=== PATIENT | female | born 1960 | race African-American/Black ===

== ENCOUNTER 2019-06-29 14:30 | Emergency (ER) | payer SELFPAY ==
[~2019-06-29] VITALS: Ht 170.2 cm; Wt 63.0 kg
[2019-06-29 14:38] VITALS: BP 163/93
[2019-06-29] MEDS ORDERED: ASPI-1497 PO (14:41)
== END 2019-06-29 18:46 | disposition left against medical advice (07) ==
LOC: ER 14:40
DX: Z53.21 Procedure and treatment not carried out due to patient leaving prior to being seen by health care provider (principal)
CPT/HCPCS: 93005

== ENCOUNTER 2020-10-29 15:54 | Inpatient (IN) | payer MEDICAID ==
[~2020-10-29] VITALS: Ht 177.8 cm; Wt 69.5 kg
[~2020-10-29 15:54] MED LIST: ASPI-1497 PO
[2020-10-29] MEDS ORDERED: ASPIRIN 325MG EC TABLET PO ONE (16:15)
[2020-10-29] MEDS ORDERED: HEPARIN 5000 UNITS/ML VIAL IV ONE (16:15)
[2020-10-29] MEDS: NITROGLYCERIN 0.4MG TABLET SL SL PRN ×2 (16:26→16:37)
[2020-10-29 16:29] LABS: BASOPHILS % 0.8 % (0.0-2.0); EOSINOPHILS % 1.4 % (0.0-5.0); HEMATOCRIT. 44.1 % (36.0-48.0); HEMOGLOBIN. 15.1 g/dL (12.0-16.0); LYMPHOCYTES % 28.3 % (20.0-50.0); MEAN CORPUSCULAR HEMOGLOBIN 30.3 pg (28.0-32.0); MEAN CORPUSCULAR VOLUME 88.3 fL (81.0-99.0); MEAN PLATELET VOLUME 9.2 fl (7.4-10.4); MONOCYTES % 8.5 % (2.0-8.0); PLATELET 245 x1000/uL (130-400); RED BLOOD CELL COUNT 4.99 mill/uL (4.2-5.4); RED CELL DISTRIBUTION WIDTH 14.1 % (11.6-14.6)
[2020-10-29] MEDS ORDERED: ONDANSETRON HCL 4MG/2ML INJ IV STA ×2 (16:42→17:43)
[2020-10-29] MEDS ORDERED: MORPHINE SULFATE 4 MG/ML CPJ (NOT FOR IM USE) IV STA ×2 (16:42→17:43)
[2020-10-29 16:44] LABS: PARTIAL THROMBOPLASTIN TIME 21.6 sec (23.4-31.0); PROTHROMBIN TIME 10.6 sec (9.6-11.0)
[2020-10-29] MEDS ORDERED: SODIUM CHLORIDE 0.9% 1,000 ML IV ONE (16:45)
[2020-10-29 17:37] LABS: CHLORIDE 106 mEq/L (98-107)
[2020-10-29] MEDS ORDERED: HEPARIN 5000 UNITS/ML VIAL IV NR (18:15)
[2020-10-29] MEDS: CLOPIDOGREL 75MG TABLET PO SCH (18:31)
[2020-10-29] MEDS: CARVEDILOL 6.25 MG TABLET PO SCH (21:00)
[2020-10-29] MEDS: ATORVASTATIN CALCIUM 40MG TABLET PO SCH (23:21)
[2020-10-30] VITALS (11 sets, daily range): BP systolic 94–122; BP diastolic 50–73
[2020-10-30] MEDS ORDERED: LISI-186 MT (01:24)
[2020-10-30] MEDS ORDERED: CLOP75TA33 PO (01:25)
[2020-10-30] MEDS ORDERED: ATOR80TA MT (01:26)
[2020-10-30] MEDS ORDERED: CARV6.2548 MT (01:28)
[2020-10-30] MEDS ORDERED: MORPHINE SULFATE 2 MG/ML CPJ (NOT FOR IM USE) IV PRN (05:30)
[2020-10-30] MEDS ORDERED: HEPARIN SODIUM 1,000 UNIT/1ML VIAL IV ONE (07:54)
[2020-10-30] MEDS ORDERED: NITROGLYCERIN 50MCG/ML 10ML VIAL (CATH LAB) IV ONE (07:54)
[2020-10-30] MEDS ORDERED: NICARDIPINE 100MCG/ML 10ML VIAL (CATH LAB) IV ONE (07:54)
[2020-10-30] MEDS: ENOXAPARIN 40MG/0.4ML SYR SUBCUT SCH (09:00)
[2020-10-30] MEDS: CARVEDILOL 6.25 MG TABLET PO SCH ×2 (09:00→20:20)
[2020-10-30] MEDS: CLOPIDOGREL 75MG TABLET PO SCH (09:48)
[2020-10-30] MEDS: ASPIRIN 81MG TABLET PO SCH (09:48)
[2020-10-30] MEDS: ISOSORBIDE MONONITRATE 60MG TABLET SR 24HR PO SCH (09:48)
[2020-10-30] MEDS ORDERED: LIDOCAINE HCL 1% 20ML VIAL (Pyxis) INJ ONE (10:51)
[2020-10-30] MEDS ORDERED: VERAPAMIL HCL 2.5 MG/1 ML 2ML VIAL IV ONE (10:51)
[2020-10-30] MEDS ORDERED: IODIXANOL 320MG/ML 100 ML BOTTLE IV ONE (10:52)
[2020-10-30] MEDS ORDERED: PNEUMOCOCCAL 23-VAL P-SAC VAC 0.5 ML IM ONE (12:00)
[2020-10-30] MEDS ORDERED: FENTANYL CITRATE/PF 50MCG/ML 2ML VIAL ONE ×2 (13:14→14:19)
[2020-10-30] MEDS ORDERED: MIDAZOLAM HCL 2 MG/2 ML VIAL ONE ×2 (13:14→14:07)
[2020-10-30] MEDS ORDERED: IOHEXOL-300 100 ML BOTTLE ONE (13:50)
[2020-10-30] MEDS ORDERED: CLOPIDOGREL 75MG TABLET ONE (15:11)
[2020-10-30] MEDS ORDERED: ATROPINE SULFATE 1MG/10ML SYR IV PRN (15:15)
[2020-10-30] MEDS: OMEPRAZOLE 20MG CAPSULE EXTENDED RELEASE PO SCH (16:12)
[2020-10-30] MEDS: ACETAMINOPHEN 325MG TABLET PO PRN (17:07)
[2020-10-30] MEDS: ATORVASTATIN CALCIUM 40MG TABLET PO SCH (20:19)
[2020-10-31] VITALS (10 sets, daily range): BP systolic 90–129; BP diastolic 50–78
[2020-10-31 07:00] LABS: BASOPHILS % 0.5 % (0.0-2.0); EOSINOPHILS % 1.7 % (0.0-5.0); HEMATOCRIT. 37.7 % (36.0-48.0); HEMOGLOBIN. 13.3 g/dL (12.0-16.0); LYMPHOCYTES % 21.4 % (20.0-50.0); MEAN CORPUSCULAR HEMOGLOBIN 31.5 pg (28.0-32.0); MEAN CORPUSCULAR VOLUME 89.6 fL (81.0-99.0); MEAN PLATELET VOLUME 9.6 fl (7.4-10.4); MONOCYTES % 9.5 % (2.0-8.0); NEUTROPHILS % 66.9 % (40.0-76.0); PLATELET 188 x1000/uL (130-400); RED BLOOD CELL COUNT 4.21 mill/uL (4.2-5.4); RED CELL DISTRIBUTION WIDTH 14.1 % (11.6-14.6)
[2020-10-31 07:06] LABS: CHLORIDE 108 mEq/L (98-107)
[2020-10-31] MEDS: ENOXAPARIN 40MG/0.4ML SYR SUBCUT SCH (09:00)
[2020-10-31] MEDS: OMEPRAZOLE 20MG CAPSULE EXTENDED RELEASE PO SCH (09:12)
[2020-10-31] MEDS: ISOSORBIDE MONONITRATE 60MG TABLET SR 24HR PO SCH (09:12)
[2020-10-31] MEDS: CLOPIDOGREL 75MG TABLET PO SCH (09:12)
[2020-10-31] MEDS: CARVEDILOL 6.25 MG TABLET PO SCH (09:13)
[2020-10-31] MEDS: ASPIRIN 81MG TABLET PO SCH (09:13)
[2020-10-31] MEDS ORDERED: ASPI-1497 PO (10:46)
[2020-10-31] MEDS ORDERED: ISOS60TA76 PO (10:46)
[2020-10-31] MEDS ORDERED: LIP40 PO (10:46)
[2020-10-31] MEDS ORDERED: CLOP75TA33 PO (10:46)
[2020-10-31] MEDS: ACETAMINOPHEN 325MG TABLET PO PRN (14:49)
[2020-10-31] MEDS ORDERED: NITROGLYCERIN 0.4MG TABLET SL SL PRN ×2 (16:30)
== END 2020-10-31 17:50 | disposition home or self-care (01) | DRG 174 ==
LOC: ER 15:54 → 5WST 18:22 → ENRESERV 23:33 → 3WST 10-30 15:14
PROVIDERS: ADMIT Internal Medicine; ATTEND Internal Medicine
PROC: 027034Z Dilation of Coronary Artery, One Artery with Drug-eluting Intraluminal Device, Percutaneous Approach (ICD-10-PCS; principal; 2020-10-30)
PROC: 4A023N7 Measurement of Cardiac Sampling and Pressure, Left Heart, Percutaneous Approach (ICD-10-PCS; 2020-10-30)
PROC: B54MZZA Ultrasonography of Right Upper Extremity Veins, Guidance (ICD-10-PCS; 2020-10-30)
PROC: B240ZZ3 Ultrasonography of Single Coronary Artery, Intravascular (ICD-10-PCS; 2020-10-30)
PROC: B211YZZ Fluoroscopy of Multiple Coronary Arteries using Other Contrast (ICD-10-PCS; 2020-10-30)
DX: I21.4 Non-ST elevation (NSTEMI) myocardial infarction (principal); I50.23 Acute on chronic systolic (congestive) heart failure; D72.829 Elevated white blood cell count, unspecified; E11.9 Type 2 diabetes mellitus without complications; E78.5 Hyperlipidemia, unspecified; I25.2 Old myocardial infarction; Z79.82 Long term (current) use of aspirin; I25.110 Atherosclerotic heart disease of native coronary artery with unstable angina pectoris; Z20.822 Contact with and (suspected) exposure to COVID-19; J40 Bronchitis, not specified as acute or chronic; I11.0 Hypertensive heart disease with heart failure; Z95.5 Presence of coronary angioplasty implant and graft
CPT/HCPCS: 36415; 71045; 80048; 80053; 80061; 83036; 83880; 84443; 84484; 85025; 85347; 86850; 86900; 87426; 90732; 92928; 93005; 93306; 93458; 99291; C1725; C1753; C1769; C1874; C1887; C1893; J1644; J2250; J2270; J2405; J3010; J3490; J7030; Q9967